=== PATIENT | male | born 1990 | race Caucasian/White ===

== ENCOUNTER 2018-07-24 23:24 | Emergency (ER) | payer SELFPAY ==
[2018-07-24 23:31] VITALS: BP 111/75
--- NOTE | 2018-07-25 00:12 | RADIOLOGY REPORT (SQ) ---
EXAM DESCRIPTION: XR SHOULDER 2 OR MORE VIEWS COMPLETED DATE/TME: 07/24/2018 00:00 CLINICAL HISTORY: 28 years Male pain COMPARISON: None. TECHNIQUE: RIGHT shoulder three view FINDINGS: No acute fractures or dislocations identified. No osseous destructive lesions. Acromioclavicular joint appears maintained. IMPRESSION: No acute fracture or dislocation identified.
--- NOTE | 2018-07-25 01:29 | ER Document Report ---
ED Extremity Problem, Upper - General Chief Complaint: Arm Injury Stated Complaint: ARM INJURY Time Seen by Provider: 07/25/18 00:07 Mode of Arrival: Ambulatory Information source: Patient Notes: Patient is a 28-year-old male comes emergency room complaint of right shoulder pain. 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 He states that 2 weeks ago he was swinging on [employer] and he missed his marked swinging all the way through. It yanked his right shoulder and he had instant pain. Over the next couple days he laid off of it and got a little better but lately he has been working 16-hour days and climbing trees and the pain is gotten to the point that he is having difficulty using his right arm because of the shoulder pain. He denies any other injuries or any other medical problems. TRAVEL OUTSIDE OF THE [place] IN LAST 30 DAYS: No - HPI Patient complains to provider of: Injury, Pain, Swelling, Shoulder Onset: Other - 2 weeks ago intensified past 2 days. Recent injury: Yes Where: Public place, Work Quality of pain: Achy, Sharp, Throbbing Severity of pain: Moderate, Still present Pain Level: 3 Context: Other - Swinging action with a heavy object Arm and Shoulder (Right): 1 - Area of pain and discomfort Associated symptoms: None Exacerbated by: Movement Relieved by: Rest Similar symptoms previously: Yes Recently seen / treated by doctor: No Past Medical History - General Information source: Patient - Social History Smoking Status: Current Every Day Smoker Cigarette use (# per day): Yes Chew tobacco use (# tins/day): No Smoking Education Provided: Yes Frequency of alcohol use: Occasional Drug Abuse: None Family History: Reviewed & Not Pertinent Patient has suicidal ideation: No Patient has homicidal ideation: No Pulmonary Medical History: Reports: Hx Asthma Renal/ Medical History: Denies: Hx Peritoneal Dialysis Past Surgical History: Reports: Hx Tonsillectomy Review of Systems - Review of Systems Constitutional: No symptoms reported EENT: No symptoms reported Cardiovascular: No symptoms reported Respiratory: No symptoms reported Gastrointestinal: No symptoms reported Genitourinary: No symptoms reported Male Genitourinary: No symptoms reported Musculoskeletal: See HPI, Joint pain, Muscle pain Skin: No symptoms reported Hematologic/Lymphatic: No symptoms reported Neurological/Psychological: No symptoms reported -: Yes All other systems reviewed and negative Physical Exam - Vital signs Vitals: Temp Pulse Resp BP Pulse Ox 98.0 F 59 L 16 111/75 98 07/24/18 23:30 07/24/18 23:30 07/24/18 23:30 07/24/18 23:30 07/24/18 23:30 Interpretation: Normal - Notes Notes: Patient is well-nourished well-developed 28-year-old male who is in no apparent distress on physical examination however he does appear to be in obvious discomfort with movement of his right shoulder. - General General appearance: Alert - HEENT Head: Normocephalic, Atraumatic Eyes: Normal Conjunctiva: Normal Sinus: Normal Nasal: Normal Mouth/Lips: Normal Pharynx: Normal. No: Blood in hypopharynx, Erythema, Exudate, Peritonsillar abscess, Post nasal drainage, Retropharyngeal abscess, Tonsillar hypertrophy, Uvular edema, Potential airway comprom. Neck: Normal, Supple. No: Posterior cervical chain, Carotid bruit, Kernig's, Lymphadenopathy, Meningismus, Neck mass, Shotty nodes, Subcutaneous emphysema - Respiratory Respiratory status: No respiratory distress Chest status: Nontender Breath sounds: Normal Chest palpation: Normal - Abdominal Inspection: Normal Distension: No distension Bowel sounds: Normal Tenderness: Nontender - Extremities General upper extremity: Tender, Normal color, Normal temperature. No: Normal inspection, Normal ROM, Normal strength General lower extremity: Normal inspection, Nontender, Normal ROM, Normal strength Shoulder: Tender, Limited ROM, Other - Examination of patient's right shoulder shows point tenderness on the anterior and lateral side of the shoulder itself. Mostly anterior around the rotator cuff area. He has decreased strength against resistance in all planes. He has good pulses distally good cap refill in the nailbeds of the right hand. Has good front end application developer strength. 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 There is no crepitus felt with passive range of motion.. No: Nontender, Deformity, Dislocation, Ecchymosis, Laceration - Neurological Neuro grossly intact: Yes Orientation: AAOx4 [place] Coma Scale Eye Opening: Spontaneous [place] Coma Scale Verbal: Oriented [place] Coma Scale Motor: Obeys Commands [place] Coma Scale Total: 15 Speech: Normal - Skin Skin Temperature: Warm Skin Moisture: Dry Skin Color: Normal, [place] Course - Re-evaluation Re-evalutation: 07/25/18 01:36 Reevaluation of patient after x-rays showed there was no acute findings I have informed patient that chances are this is a rotator cuff from the mechanism of injury. 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 A have considered that this could be a bursitis as well we will treat with a steroid taper little muscle relaxer and a little pain medication I have informed patient not to climb trees taking the medication except for the steroids. I have given him the orthopedist media professional he can contact your office to see if they can accommodate him for a evaluation and possible recommendation or MRI. Patient is acceptable to this plan and we will also put him in a sling for when he is not using his arm ache and rest. - Vital Signs Vital signs: Temp Pulse Resp BP Pulse Ox 98.0 F 59 L 16 111/75 98 07/24/18 23:30 07/24/18 23:30 07/24/18 23:30 07/24/18 23:30 07/24/18 23:30 Procedures - Immobilization Right Shoulder Pre-Proc Neuro Vasc Exam: Normal Immobilizer type: Sling Performed by: TROY Post-Proc Neuro Vasc Exam: Normal, Unchanged from pre-exam Alignment checked and good: Yes Discharge - Discharge Clinical Impression: Bursitis of shoulder, right Strain of right shoulder Qualifiers: Encounter type: initial encounter Qualified Code(s): S46.911A - Strain of unspecified muscle, fascia and tendon at shoulder and upper arm level, right arm , initial encounter Rotator cuff (capsule) sprain Qualifiers: Encounter type: initial encounter Laterality: right Qualified Code(s): S43.421A - Sprain of right rotator cuff capsule, initial encounter Condition: Stable Disposition: HOME, SELF-CARE Instructions: Shoulder Injury ([facility]), Bursitis ([facility]), Rotator Cuff Injury ([facility]) Additional Instructions: As we discussed this is an injury that is going to require an orthopedist to be involved in. I am giving you the name the orthopedic media professional you may contact his office to see if he can accommodate you. In the meantime he wants to use the sling when not active and ice down at least 3 times a day and the spot that hurts. Putting you on a steroid as we discussed for inflammatory purposes so this should help if the bursitis is active. Also gave you a muscle relaxer and a little pain medication for sleep at night. This is something that with activity it will stay aggravated with rest it may get better. Should you have any concerns or problems return to ER for recheck. Prescriptions: Cyclobenzaprine HCl [Flexeril 10 mg Tablet] 10 mg PO TIDP PRN #21 tablet PRN Reason: Hydrocodone/Acetaminophen [[place] 5-325 mg Tablet] 1 tab PO HSP PRN #10 tablet PRN Reason: Prednisone [Sterapred Ds] 10 mg PO ASDIR PRN 6 Days #1 tab.ds.pk PRN Reason:
== END 2018-07-25 02:53 | disposition home or self-care (01) ==
LOC: ER 23:24
DX: S43.421A Sprain of right rotator cuff capsule, initial encounter (principal); S46.911A Strain of unspecified muscle, fascia and tendon at shoulder and upper arm level, right arm, initial encounter; M75.51 Bursitis of right shoulder; M79.89 Other specified soft tissue disorders; X50.0XXA Overexertion from strenuous movement or load, initial encounter; F17.210 Nicotine dependence, cigarettes, uncomplicated; J45.909 Unspecified asthma, uncomplicated
CPT/HCPCS: 99283